=== PATIENT | male | born 1965 | race Caucasian/White ===

== ENCOUNTER 2020-04-05 13:26 | Outpatient (REF) | payer OTHER, SELFPAY | END 2020-04-05 13:27 | disposition home or self-care (01) | LOC: HO.LAB 13:26 | PROVIDERS: Visit Provider Internal Medicine | DX: Z20.828 Contact with and (suspected) exposure to other viral communicable diseases (principal) | CPT/HCPCS: C9803; U0003 ==

== ENCOUNTER 2020-04-15 12:01 | Outpatient (REF) | payer OTHER, SELFPAY | END 2020-04-15 12:02 | disposition home or self-care (01) | LOC: HO.LAB 12:01 | PROVIDERS: Visit Provider Internal Medicine | DX: Z20.828 Contact with and (suspected) exposure to other viral communicable diseases (principal) | CPT/HCPCS: C9803; U0003 ==

== ENCOUNTER 2023-06-02 09:29 | Emergency (ER) | payer OTHER, SELFPAY ==
--- NOTE | ~2023-06-02 | XR_ITS ---
EXAMINATION: XR CHEST CLINICAL INFORMATION: Chest pain COMPARISON: None available. TECHNIQUE: Frontal view of the chest was obtained. FINDINGS: Lungs clear. No pneumothorax. Heart and pulmonary vessels normal. XR/XR chest 1V IMPRESSION: No active disease.
--- NOTE | 2023-06-02 09:30 | ECG_ITS ---
Test Reason : chest pain Blood Pressure : / mmHG Vent. Rate : 077 BPM Atrial Rate : 077 BPM P-R Int : 144 ms QRS Dur : 080 ms QT Int : 388 ms P-R-T Axes : 049 -07 023 degrees QTc Int : 439 ms Normal sinus rhythm Normal ECG No previous ECGs available Referred By: Generic ED Physician Electronically Signed By:Rick Stephen
[2023-06-02 09:35] VITALS: BP 131/75; PULSE 75; RESP 18; TEMP 36.6; O2SAT 97; BMI 28.5
[2023-06-02 10:07] LABS: Hematocrit 43.8 % (42.0-52.0); Mean Corpuscular Hemoglobin 27.1 pg (27.0-33.0); Mean Corpuscular Volume 84.9 fL (80.0-98.0); Mean Platelet Volume 9.7 fL (9.4-12.4); Platelet Count 181 X10*3/uL (160-400); Red Blood Count 5.16 X10*6/uL (4.60-5.80); Red Cell Distribution Width 14.7 % (11.0-16.0)
[2023-06-02 10:08] LABS: WBC ABN SCTR FOR CBC 1
[2023-06-02 10:10] LABS: White Blood Count 66.6 X10*3/uL (4.8-10.8)
[2023-06-02 10:23] VITALS: PULSE 62
[2023-06-02 10:23] LABS: Alanine Aminotransferase 21 U/L (0-40); Albumin Level 4.2 g/dL (3.5-5.0); Alkaline Phosphatase 48 U/L (39-117); Anion Gap 11 (12-20); Aspartate Amino Transferase 19 U/L (5-37); Bilirubin Direct 0.2 mg/dL (0.0-0.5); Bilirubin Total 0.4 mg/dL (0.0-1.0); Blood Urea Nitrogen 18 mg/dL (9-16); Calcium 9.2 mg/dL (8.4-10.2); Carbon Dioxide 25 mmol/L (22-29); Chloride 108 mmol/L (96-108); Creatinine Clr Calc Pharmacy 96.3; Estimated Glomerular Filt Rate > 60; Glucose Random 101 mg/dL (60-115); Lipase 18 U/L (8-78); Potassium 4.4 mmol/L (3.3-5.1); Sodium 140 mmol/L (135-145); Total Protein 6.6 g/dL (6.5-8.0)
[2023-06-02 10:30] LABS: Troponin-I High Sensitivity 52.2 ng/L (<3.5-35.0)
[2023-06-02 11:11] VITALS: BP 127/85; PULSE 58; RESP 14; TEMP 36.4; O2SAT 96
--- NOTE | 2023-06-02 11:14 | PC.NURSE ---
iv #20 to l forearm.
[2023-06-02 11:23] LABS: Lymphocytes Absolute Manual 59.9 X10*3/uL (1.2-4.9); Lymphocytes Percent Manual 90 % (20-40); Monocytes Absolute Manual 0.7 X10*3/uL (0.1-1.2); Monocytes Percent Manual 1 % (2-11); Neutrophils Percent Manual 9 % (45-73)
[2023-06-02 11:24] LABS: Band Neutrophils Percent 0 % (3-5)
[2023-06-02 11:26] LABS: Platelet Estimate NORMAL (NORMAL); Platelet Morphology Comment NORMAL; RBC Morphology NORMAL
[2023-06-02 11:34] LABS: D Dimer High Sensitivity < 150 NG/ML
[2023-06-02 11:45] VITALS: BP 130/88; PULSE 66; RESP 17; TEMP 36.6; O2SAT 94
[2023-06-02 12:05] VITALS: BP 139/83; PULSE 60; RESP 16; O2SAT 97
--- NOTE | 2023-06-02 12:35 | ED.CHESTPAIN ---
HPI - Chest Pain General Chief Complaint: Chest Pain Stated Complaint: Chest pain Time Seen by Provider: 06/02/23 09:47 Source: patient Mode of arrival: ambulatory Limitations: no limitations History of Present Illness HPI narrative: sharp upper left chest pain for weeks, today was worse. No history of cardiac ischemia, patient has a history of lupus and CLL. Last WBC was 83. MD complaint: chest pain Onset (ago): week(s) Timing of current episode: episodic Onset: during rest Pain location: left chest (upper) Related Data Previous Rx's Medication Instructions Recorded naproxen 500 mg tablet (Naprosyn) 500 mg PO BID #20 tabs 06/02/23 Allergies Allergy/AdvReac Type Severity Reaction Status Date / Time No Known Allergies Allergy Verified 06/02/23 09:38 Review of Systems Review of Systems: Yes all other systems are reviewed and are negative Neurologic: Denies Sensory deficit (Neuro) [facility] Social History Social History Smoked in Last 30 Days: No Use of substances other than those prescribed or required for medical reasons: No Advance Directives: No Physical Exam Vital Signs: Vital Signs: Last Vital Signs Temp 97.9 F 06/02/23 11:45 Pulse 60 06/02/23 12:05 Resp 16 06/02/23 12:05 BP 139/83 06/02/23 12:05 Pulse Ox 97 06/02/23 12:05 O2 Del Method Room Air 06/02/23 12:05 BMI result Body Mass Index 28.5 Const: General: healthy appearing Nutritional Appearance: average body habitus Orientation/consciousness: oriented to person and patient oriented x3 Limitations: no limitations HEENT: Head: Yes normal to inspection Ears: external ears normal General nose exam: Normal external nose present Mouth: Normal oral and palatal mucosa present and oropharynx normal Throat: Yes posterior oropharynx normal Eyes: General: appearance normal, both eyes and all related structures Neck: Other: supple Neck: Yes normal visual inspection Chest: Chest palpation & inspection: normal inspection of the chest Resp: Auscultation: clear to auscultation bilaterally Cardio: Jugular venous distension: no JVD Rate: regular rate Rhythm: regular rhythm Heart sounds: S1 normal heart sound present and S2 normal heart sound present GI: Inspection: Yes normal to inspection Palpation (GI): Soft to palpation, nontender and No hepatosplenomegaly present Auscultation: normal bowel sounds : General: Yes no CVA tenderness Back/Spine/Pelvis: Back: no CVA tenderness Skin: General skin exam: no rashes or lesions noted Neuro: General: oriented to person and patient oriented x3 Cranial nerves: Yes CN's II-XII intact bilaterally Motor exam (neuro): 5/5 motor strength present throughout Sensory Exam: No Sensory deficit (Neuro) Extrem: General: Yes normal to inspection Psych: Appearance: grossly normal Course Reevaluation(s) Reevaluation #1: EKG normal, troponin flat, will give toradol for pain Time: 12:40 Reevaluation #2: EKG #2 normal sinus 60, no st or twave changes Time: 13:05 Medications Administered Discontinued Medications Generic Name Dose Route Start Last Admin Trade Name Freq PRN Reason Stop Dose Admin Ketorolac Tromethamine 30 mg 06/02/23 12:39 06/02/23 12:56 Ketorolac Tromethamine 30 Mg/Ml Vial IVPUSH 06/02/23 12:40 30 mg ONCE ONE Administration Medical Decision Making Differential Diagnosis Differential Diagnoses: The differential diagnosis associated with the presentation includes (cardiac ischemia, pneumonia, PE were all considered) Admission/Observation Consideration of admission/observation: Escalation of care including admission/observation considered (upon arrival patient was considered for admission) Lab Data 06/02/23 09:54 06/02/23 09:54 Labs: Lab Results 06/02/23 06/02/23 06/02/23 Range/Units 09:54 10:58 11:51 WBC 66.6 H* (4.8-10.8) X10*3/uL RBC 5.16 (4.60-5.80) X10*6/uL Hgb 14.0 (14.0-18.0) g/dl Hct 43.8 (42.0-52.0) % MCV 84.9 (80.0-98.0) fL MCH 27.1 (27.0-33.0) pg MCHC 32.0 (31.0-36.0) g/dl RDW 14.7 (11.0-16.0) % Plt Count 181 (160-400) X10*3/uL MPV 9.7 (9.4-12.4) fL Immature Gran % (Auto) Cancelled Neut % (Auto) Cancelled Lymph % (Auto) Cancelled [place] % (Auto) Cancelled Eos % (Auto) Cancelled Baso % (Auto) Cancelled Lymph # (Auto) Cancelled [place] # (Auto) Cancelled Eos # (Auto) Cancelled Baso # (Auto) Cancelled Abs Immat Gran (auto) Cancelled Absolute Neuts (auto) Cancelled Absolute Nucleated RBC 0.000 (0.0-0.012) X10*3/uL Nucleated RBC % (auto) 0.0 (0.0-0.2) /100WBC Neutrophils % (Manual) 9 L (45-73) % Band Neutrophils % 0 L (3-5) % Lymphocytes % (Manual) 90 H (20-40) % Monocytes % (Manual) 1 L (2-11) % Abs Neuts (Manual) 6.0 (2.0-8.3) X10*3/uL Lymphocytes # (Manual) 59.9 H (1.2-4.9) X10*3/uL Monocytes # (Manual) 0.7 (0.1-1.2) X10*3/uL Platelet Estimate NORMAL (NORMAL) Plt Morphology Comment NORMAL RBC Morphology NORMAL D-Dimer High Sensitivty < 150 NG/ML Sodium 140 (135-145) mmol/L Potassium 4.4 (3.3-5.1) mmol/L Chloride 108 (96-108) mmol/L Carbon Dioxide 25 (22-29) mmol/L Anion Gap 11 L (12-20) BUN 18 H (9-16) mg/dL Creatinine 0.88 (0.5-1.4) mg/dL Estim Creat Clear Calc 96.3 Estimated GFR > 60 Random Glucose 101 (60-115) mg/dL Calcium 9.2 (8.4-10.2) mg/dL Total Bilirubin 0.4 (0.0-1.0) mg/dL Direct Bilirubin 0.2 (0.0-0.5) mg/dL AST 19 (5-37) U/L ALT 21 (0-40) U/L Alkaline Phosphatase 48 (39-117) U/L Troponin I High Sens 52.2 H 7.0 D (<3.5-35.0) ng/L Total Protein 6.6 (6.5-8.0) g/dL Albumin 4.2 (3.5-5.0) g/dL Lipase 18 (8-78) U/L Independent Interpretation I performed an independent interpretation of an: EKG (sinus 75, no st or twave changes) and Plain X-Ray (no infiltrate) Tests considered The following testing was considered but not selected: CT of chest was considered but ddimer negative Prescription Management I considered prescription management with: Antibiotic (no infiltrate on xray) Chronic Conditions Patient?s care impacted by: Cancer Discharge Plan Discharge Clinical Impression: Atypical chest pain Patient Disposition: Home, Self-Care Instructions: Noncardiac Chest Pain (ED) Prescriptions: New naproxen [Naprosyn] 500 mg tablet 500 mg PO BID Qty: 20 0RF
--- NOTE | 2023-06-02 12:39 | ECG_ITS ---
Test Reason : CHEST PAIN Blood Pressure : / mmHG Vent. Rate : 063 BPM Atrial Rate : 063 BPM P-R Int : 150 ms QRS Dur : 084 ms QT Int : 426 ms P-R-T Axes : 046 -07 031 degrees QTc Int : 435 ms Normal sinus rhythm Normal ECG When compared with ECG of 02-JUN-2023 09:32, No significant change was found Referred By: Hardik Feldman Electronically Signed By:Rick Stephen
[2023-06-02] MEDS: Ketorolac Tromethamine 30 MG/ML VIAL IVPUSH (12:56)
--- NOTE | 2023-06-02 13:15 | PC.NURSE ---
Patient alert and oriented x 3. Patient denies chest pain, sob, and dizziness. tele: sinus rythym Ketoralac given for 10/10 midsternal chest pain with relief. Patient to be discharged.
== END 2023-06-02 13:16 | disposition home or self-care (01) ==
PROVIDERS: Emergency Provider Emergency Medicine; PCP Internal Medicine
DX: R07.89 Other chest pain (principal); Z79.899 Other long term (current) drug therapy
CPT/HCPCS: 36415; 71045; 80048; 80076; 83690; 84484; 85007; 85025; 85027; 85379; 93005; 96374; 99284; 99285; J1885

== ENCOUNTER → 2023-06-02 09:30 | Outpatient (BNV) | payer OTHER, SELFPAY | PROVIDERS: Emergency Provider Emergency Medicine; PCP Internal Medicine; Visit Provider Internal Medicine Cardiovascular Disease | DX: R07.9 Chest pain, unspecified (principal) | CPT/HCPCS: 93010 ==